=== PATIENT | female | born 1995 | race African-American/Black ===

== ENCOUNTER 2020-11-22 15:55 | Emergency (ER) | payer OTHER ==
[~2020-11-22] VITALS: Ht 177.8 cm; Wt 79.5 kg
[2020-11-22 16:13] VITALS: BP 135/87
[2020-11-22] MEDS ORDERED: IV NORMAL SALINE 1,000ML 1,000 ML IV ONE (16:15)
--- NOTE | 2020-11-22 16:30 | RAD ---
PA and lateral chest. HISTORY: Chest pain PA and lateral views were taken of the chest. Heart is normal in size. There is a trace of pleural ef fusion with blunting of the left costophrenic angle. No confluent areas of infiltrate are noted. IMPRESSION: 1. Possible trace left pleural effusion. 2. No confluent infiltrates. Electronically signed by: Rob Suarez MD (11/22/2020 4:27 PM) [facility]
--- NOTE | 2020-11-22 16:47 | PHYS DOC ---
Past History Past Medical History: No Pertinent History Past Surgical History: No Surgical History Smoking: Quit Greater Than 1 Year Additional Smoking Information: smoked 1 "black and mild" small cigar daily x 1 year Alcohol Use: None Drug Use: None General Adult EDM: Chief Complaint: CHEST PAIN HPI: HPI: 25-year-old female presents with mid to right sternal chest discomfort that has been intermittent and ongoing for the past 2 months. Reports occurs at random. Denies known association. Denies known trauma. Denies cough. Denies shortness of air. Denies history of anxiety or increased life stressors. Denies leg swelling or calf tenderness. Cardiac risk factors include former smoking of 1 black and mild cigarette daily x1 year. Denies use of estrogen, recent surgery, or history of DVT/PE. Denies pleuritic pain. Denies . Patient reports she is currently on her menstrual cycle. Review of Systems: Review of Systems: Constitutional: Denies fever or chills Eyes: Denies redness or eye pain HENT: Denies nasal congestion or sore throat Respiratory: Denies cough or shortness of breath Cardiovascular: Reports chest pain and palpitations GI: Denies abdominal pain, nausea, or vomiting : Denies dysuria or hematuria Musculoskeletal: Denies back pain or joint pain Integument: Denies rash or skin lesions Neurologic: Denies headache, focal weakness or sensory changes Complete systems were reviewed and found to be within normal limits, except as documented in this note. Current Medications: Current Meds: Current Medications Medications (Trade) Dose Ordered Sig/Derian Start Time Stop Time Status Last Admin Dose Admin Sodium Chloride 1,000 ml @ 1,000 mls/hr 1X ONCE 11/22/20 16:15 11/22/20 17:14 UNV Physical Exam: PE: Constitutional: Well developed, well nourished, no acute distress, non-toxic appearance HENT: Normocephalic, atraumatic Eyes: Conjunctiva normal, no discharge Neck: Normal range of motion, supple Lungs & Thorax: No respiratory distress, equal chest rise and fall Abdomen: Soft, no tenderness Skin: Warm, dry, no erythema, no rash Extremities: No tenderness, ROM intact, no edema Neurologic: Alert and oriented X 3, no focal deficits noted Psychologic: Affect normal, judgment normal Current Patient Data: Vital Signs: Vital Signs Date Time Temp Pulse Resp B/P (MAP) Pulse Ox O2 Delivery O2 Flow Rate FiO2 11/22/20 16:13 97.9 76 16 135/87 (103) 98 Room Air EKG: EKG: @1602 NSR at 77bpm, NO ST elevation, QRS 68ms, QT/QTc 370/420ms, nonspecific t wave inversion III, aVF, and V5-V6 Radiology/Procedures: Radiology/Procedures: PROCEDURE: CHEST PA & LATERAL PA and lateral chest. HISTORY: Chest pain PA and lateral views were taken of the chest. Heart is normal in size. There is a trace of pleural effusion with blunting of the left costophrenic angle. No confluent areas of infiltrate are noted. IMPRESSION: 1. Possible trace left pleural effusion. 2. No confluent infiltrates. Electronically signed by: Rob Suarez MD (11/22/2020 4:27 PM) [facility] Heart Score: C/O Chest Pain: Yes HEART Score for Chest Pain: HEART Score for Chest Pain Response (Comments) Value History Slighlty/Non-Suspicious 0 ECG Normal 0 Age < 45 0 Risk Factors 1 or 2 Risk Factors 1 Troponin < Normal Limit 0 Total 1 Risk Factors: Risk Factors: DM, Current or recent (<one month) smoker, HTN, HLP, family history of CAD, obesity. Risk Scores: Score 0 - 3: 2.5% MACE over next 6 weeks - Discharge Home Score 4 - 6: 20.3% MACE over next 6 weeks - Admit for Clinical Observation Score 7 - 10: 72.7% MACE over next 6 weeks - Early Invasive Strategies Course & Med Decision Making: Course & Med Decision Making Pertinent Labs and Imaging studies reviewed. (See chart for details) Patient presents with atypical chest pain. Low cardiac risk factors. PERC negative. EKG stable. Labs obtained and posted to chart. Thyroid studies pending. Chest x-ray without acute process. Patient stable for discharge with outpatient follow-up with PCP. A GI and cardiology referral provided. Discussed findings and plan with patient, who acknowledges understanding and agreement. Ulises Disclaimer: Ulises Disclaimer: This electronic medical record was generated, in whole or in part, using a voice recognition dictation system. Departure Departure: Impression: Primary Impression: Atypical chest pain Additional Impression: Palpitations Disposition: HOME / SELF CARE / HOMELESS Condition: STABLE Referrals: SAMI TAMAYO MD (PCP) EDITH BENDER MD, SCOTT S MD Patient Instructions: Chest Pain (Nonspecific), [id number], Palpitations, [id number] PERC Rule for PE PERC Rule for PE Response (Comments) Value Age > 50: No 0 HR > 100: No 0 Sa02 on room air <95%: No 0 Unilateral leg swelling: No 0 Hemoptysis: No 0 Recent surgery or trauma: No 0 Prior PE or DVT: No 0 Hormone use: No 0 Total 0 ARTISLINDA DO Nov 22, 2020 16:47
[2020-11-22 17:31] LABS: BASO % 1 % (0-3); EOS # 0.1 x10^3/uL (0.0-0.7); EOS % 3 % (0-3); HEMOGLOBIN 12.7 g/dL (12.0-15.5); LYMPH # 1.4 x10^3/uL (1.0-4.8); LYMPH % 29 % (24-48); MEAN CORPUSCULAR HEMOGLOBIN 32 pg (25-35); MEAN CORPUSCULAR HGB CONC 33 g/dL (31-37); MEAN CORPUSCULAR VOLUME 96 fL (79-100); MONO # 0.4 x10^3/uL (0.0-1.1); MONO % 9 % (0-9); NEUT # 2.9 x10^3uL (1.8-7.7); NEUT % 59 % (31-73); PLATELET COUNT 234 x10^3/uL (140-400); RED BLOOD COUNT 3.96 x10^6/uL (3.50-5.40); RED CELL DISTRIBUTION WIDTH 13.6 % (11.5-14.5); WHITE BLOOD COUNT 4.9 x10^3/uL (4.0-11.0)
[2020-11-22 17:38] LABS: CALCIUM 9.3 mg/dL (8.5-10.1); GFR 80.5
[2020-11-23 19:08] LABS: FREE T4 0.79 ng/dL (0.76-1.46); THYROID STIM HORMONE (TSH) 0.997 uIU/mL (0.358-3.740)
--- NOTE | 2020-11-24 23:21 | EKG ---
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
== END 2020-11-22 17:56 | disposition home or self-care (01) ==
LOC: ER 15:55
DX: R07.2 Precordial pain (principal); R00.2 Palpitations; Z87.891 Personal history of nicotine dependence
CPT/HCPCS: 36415; 71046; 80048; 84439; 84443; 84484; 85025; 93005; 96360; 99285; J7030

== ENCOUNTER 2021-06-02 17:29 | Emergency (ER) | payer OTHER ==
[~2021-06-02] VITALS: Ht 185.4 cm; Wt 100.0 kg
[2021-06-02 17:57] VITALS: BP 154/93
--- NOTE | 2021-06-02 18:42 | PHYS DOC ---
Past History Past Medical History: No Pertinent History Past Surgical History: No Surgical History Smoking: Quit Greater Than 1 Year Alcohol Use: None Drug Use: None Adult General Chief Complaint Chief Complaint: COUGH HPI HPI Patient is a 26-year-old female, in the who was possibly exposed to someone with Covid and her surgeon sent her in for Covid test. Patient otherwise asymptomatic. Review of Systems Review of Systems Review of systems otherwise unremarkable except noted in HPI Allergies Allergies Allergies Coded Allergies Type Severity Reaction Last Updated Verified No Known Drug Allergies 06/02/21 No Physical Exam Physical Exam Constitutional: Well developed, well nourished, no acute distress, non-toxic appearance. [] HENT: Normocephalic, atraumatic, bilateral external ears normal, oropharynx moist, no oral exudates, nose normal. [] Eyes: conjunctiva normal, no discharge. [] Neck: Normal range of motion, no tenderness, supple, no stridor. [] Cardiovascular:Heart rate regular rhythm, no murmur [] Lungs & Thorax: Bilateral breath sounds clear to auscultation [] Extremities: No tenderness, no cyanosis, no clubbing, ROM intact, no edema. [] Neurologic: Alert and oriented X 3, normal motor function, normal sensory function, no focal deficits noted. [] Psychologic: Affect normal, judgement normal, mood normal. [] Current Patient Data Vital Signs Vital Signs Date Time Temp Pulse Resp B/P (MAP) Pulse Ox O2 Delivery O2 Flow Rate FiO2 06/02/21 17:57 98.2 86 18 154/93 (113) 99 EKG EKG [] Radiology/Procedures Radiology/Procedures [] Heart Score C/O Chest Pain: No Risk Factors: Risk Factors: DM, Current or recent (<one month) smoker, HTN, HLP, family history of CAD, obesity. Risk Scores: Risk Factors: DM, Current or recent (<one month) smoker, HTN, HLP, family history of CAD, obesity. Course & Med Decision Making Course & Med Decision Making Patient a 26-year-old female in the who had a possible exposure to a Covid positive patient sent in by her surgeon for Covid test Covid PCR pending. Discussed Covid education and quarantine instructions with patient. Advised to follow-up with primary care in the morning. Gave return precautions to the ED. Patient grateful, verbalized understanding and agreed with plan of discharge. [] Dragon Disclaimer Dragon Disclaimer This electronic medical record was generated, in whole or in part, using a voice recognition dictation system. Departure Departure: Impression: Primary Impression: Person under investigation for COVID-19 Disposition: HOME / SELF CARE / HOMELESS Condition: GOOD Referrals: SAMI TAMAYO MD (PCP) Patient Instructions: Viral Syndrome Additional Instructions: You have been tested for or diagnosed with COVID-19. It is an infection caused by a new type of coronavirus. COVID-19 will cause cold-like or mild flu symptoms in most. It can cause more severe symptoms like problems breathing in some. There is no treatment for COVID-19. The body will clear the infection over time. Self-care will help to ease discomfort. Steps to Take: Self-Care Rest as needed. Healthy habits may help you feel better. Steps include: Choose healthy foods including fruits and vegetables. Drink water throughout the day. Get plenty of sleep each night. If you smoke, try to quit. It may ease breathing. Avoid alcohol. Keep Others Healthy The virus can spread to others. Droplets are released every time you sneeze or cough. The droplets can get into the mouth, nose, or eyes of people near you and lead to infection. To lower the chances of spreading COVID-19 to others: Stay at home until your doctor has said it is safe to leave. If you tested positive this will mean staying isolated until both of the following are true: At least 7 days have passed since the start of illness. You are free of fever for at least 72 hours without the use of medicine. During this time: - Avoid public areas, events, or transportation. Do not return to work or school until your doctor has said it is safe to do so. - Call ahead if you need to go to a medical center. Let them know you may have COVID-19. It will help them guide you where to go. They may also ask you to wear a facemask when you come to the office. - If you call for emergency medical services, let them know you may have COVID- 19. While at home: - Try to avoid close contact with others. Stay about 6 feet away. - If possible, spend most of your time in a separate room from others. - Use a face mask if you will be in close contact with others such as sharing a room or vehicle. - Have someone wipe down common surfaces in the home. Use household notched blade loader every day on areas like doorknobs, counters, or sinks. - Cough or sneeze into a tissue. Throw the tissue away right after use. If a tissue is not available, cough or sneeze into your elbow. - Wash your hands often. Wash them after sneezing or coughing. Use soap and water and wash for at least 20 seconds. Alcohol based hand shield cleaner can be used if soap and water is not available. - Do not prepare food for others. Avoid sharing personal items like forks, spoons, or toothbrushes. - Avoid close contact with pets while you are sick. There is no evidence of the virus passing to pets. This is a safety step until more is known about this virus. Isolation can be frustrating. Social interaction can help. Keep in touch with friends and family through phone and tech options. You can still interact with others in your home, just keep a safe distance of about 6 feet. Follow-up: Your doctors office will check in with you to see if there are any changes in your health. You may be asked to keep track of symptoms to share with them. They will also let you know when you are clear to be in public again. Problems to Look Out For: Contact your doctor if your recovery is not going as you expect. Get emergency care if you have problems such as: - Trouble breathing - Nonstop chest pain or pressure - Changes in awareness, confusion, or problems waking - Lips or face have bluish color - Worsening of symptoms If you think you have an emergency, call for emergency medical services right away. As taken from [facility] [place] Camille [facility] MEDRANO MD Jun 02, 2021 18:42
== END 2021-06-02 18:50 | disposition home or self-care (01) ==
LOC: ER 17:38
DX: R05.9 Cough, unspecified (principal); R53.83 Other fatigue; Z20.822 Contact with and (suspected) exposure to COVID-19; Z87.891 Personal history of nicotine dependence
CPT/HCPCS: 99283; C9803; U0003

== ENCOUNTER 2021-07-20 11:14 | Emergency (ER) | payer OTHER ==
[~2021-07-20] VITALS: Ht 185.4 cm; Wt 100.0 kg
[2021-07-20 11:26] VITALS: BP 142/78
[2021-07-20] MEDS ORDERED: CYCL5TAB PO (11:37)
--- NOTE | 2021-07-20 11:38 | PHYS DOC ---
Past History Past Medical History: No Pertinent History Past Surgical History: No Surgical History Smoking: Quit Greater Than 1 Year Alcohol Use: None Drug Use: None Adult General Chief Complaint Chief Complaint: BACK PAIN OR INJURY [facility] HPI Patient is a 26-year-old female presenting via POV for neck pain. Reports onset was approximately 24 hours ago without any obvious trauma, mechanism of injury or other noteworthy event. Rest and administration of x2 Tylenol today provided minimal relief, turning her head rotationally to the left makes worse in addition to palpation of right side of neck. Timing of symptoms has been constant since onset. States she had issues sleeping overnight. Denies any prior history of neck and/or other spinal issues, no prior surgeries. 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 She is otherwise healthy and takes no medications on a daily basis. She has had musculoskeletal issues like this in the past that have been self- limiting and resolved with supportive care practices. Besides from pain, patient denies any sensory or neurologic deficits Review of Systems Review of Systems Fourteen body systems of review of systems have been reviewed. See HPI for pertinent positives and negative responses, other dave all other systems are negative, non-pertinent or non-contributory Allergies Allergies Allergies Coded Allergies Type Severity Reaction Last Updated Verified No Known Drug Allergies 06/02/21 No Physical Exam Physical Exam Constitutional: Well developed, well nourished, no acute distress, non-toxic appearance. HENT: Normocephalic, atraumatic, bilateral external ears normal, oropharynx moist, no oral exudates, nose normal. Eyes: PERRLA, EOMI, conjunctiva normal, no discharge. Neck: No midline tenderness or step-off, supple, no stridor. Patient's right paracervical muscles in addition to right sternocleidomastoid muscle taut and painful with palpation of muscle belly. No meningeal signs or nuchal rigidity but there is pain with contraction of right sternocleidomastoid Cardiovascular: Heart rate regular, sinus rhythm, no murmurs rubs or gallops Lungs & Thorax: Bilateral breath sounds clear to auscultation Abdomen: Bowel sounds normal, soft, no tenderness, no masses, no pulsatile masses. Nonsurgical abdomen, no peritoneal signs Skin: Warm, dry, no erythema, no rash. Back: No tenderness, no CVA tenderness. Extremities: No tenderness, no cyanosis, no clubbing, ROM intact, no edema. Neurologic: Alert and oriented X 3, medial radial and ulnar nerves of bilateral upper extremities intact, normal motor & sensory function, no focal deficits noted. Psychologic: Affect normal, judgement normal, mood normal. EKG EKG [] Radiology/Procedures Radiology/Procedures [] Heart Score C/O Chest Pain: No Risk Factors: Risk Factors: DM, Current or recent (<one month) smoker, HTN, HLP, family history of CAD, obesity. Risk Scores: Risk Factors: DM, Current or recent (<one month) smoker, HTN, HLP, family history of CAD, obesity. Course & Med Decision Making Course & Med Decision Making ABCs unremarkable HPI and physical exam consistent with likely musculoskeletal related right-sided neck pain. Disclose little intervention for further diagnostic work-up in absence of any obvious red flag signs or symptoms of back/neck pain without trauma or injury Joint decision to administer IM orphenadrine with continued ibuprofen and Ty lenol for pain in addition to gentle neck stretches as tolerated. Further supportive care practices advised. Close PCP follow-up recommended. Patient discharged home Dragon Disclaimer Dragon Disclaimer This electronic medical record was generated, in whole or in part, using a voice recognition dictation system. Departure Departure: Impression: Primary Impression: Neck pain on right side Disposition: HOME / SELF CARE / HOMELESS Condition: STABLE Referrals: SAMI TAMAYO MD (PCP) Additional Instructions: You were seen for musculoskeletal pain. You should return to the ED if you develop worsening pain, fever, numbness, tingling, weakness, or any other new or concerning symptoms. Your pain is most likely due to a muscle strain and should improve with ibuprofen and/or Tylenol for pain, stretching, and activity. Do not drink, drive, or do anything important while taking flexeril because it can make you sleepy. If it does not improve you should follow up with a primary care doctor. Scripts Cyclobenzaprine Hcl (CYCLOBENZAPRINE HCL) 5 Mg Tablet 1 TAB PO QHS for muscle spasm, #15 TAB Prov: BRAXTON DIAS DO 07/20/21 BRAXTON DIAS DO Jul 20, 2021 11:37
[2021-07-20] MEDS ORDERED: ORPHENADRINE CITRATE 60 MG/2 ML VIAL. IM ONE (11:45)
== END 2021-07-20 11:56 | disposition home or self-care (01) ==
LOC: ER 11:14
DX: M54.2 Cervicalgia (principal); Z87.891 Personal history of nicotine dependence
CPT/HCPCS: 96372; 99283; J2360